=== PATIENT | male | born 1990 | race Caucasian/White ===

== ENCOUNTER 2016-12-14 07:59 | Emergency (ER) | payer BC ==
[~2016-12-14] VITALS: Ht 180.3 cm; Wt 109.5 kg
[~2016-12-14 07:59] MED LIST: PREDNISONE10 MG PO; VALIUM2 MG PO
[2016-12-14] MEDS ORDERED: FLEXERIL10 MG PO (10:29)
[2016-12-14] MEDS ORDERED: MEDROL DOSEPAK4 MG PO (10:29)
[2016-12-14] MEDS ORDERED: TYLENOL WITH C1 EACH PO (10:29)
[2016-12-14 10:52] VITALS: BP 130/75
== END 2016-12-14 10:54 | disposition home or self-care (01) ==
LOC: EME 07:59
DX: M54.5 Low back pain (principal)
CPT/HCPCS: 72100; 99281; 99284